=== PATIENT | female | born 1985 | race Caucasian/White ===

== ENCOUNTER 2021-09-18 18:16 | Emergency (ER) | payer OTHER ==
[~2021-09-18] VITALS: Ht 165.1 cm; Wt 66.8 kg
[2021-09-18] MEDS ORDERED: MELOXICAM15 MG PO (18:30)
== END 2021-09-18 21:05 | disposition home or self-care (01) ==
LOC: ED 18:16
DX: S61.431A Puncture wound without foreign body of right hand, initial encounter (principal); G43.909 Migraine, unspecified, not intractable, without status migrainosus; Z88.2 Allergy status to sulfonamides; Z88.8 Allergy status to other drugs, medicaments and biological substances; Z79.899 Other long term (current) drug therapy; W46.1XXA Contact with contaminated hypodermic needle, initial encounter
CPT/HCPCS: 84460; 86707; 87340; 87350; 99283